=== PATIENT | female | born 1940 | race Caucasian/White ===

== ENCOUNTER → 2017-05-21 | Outpatient (CLI) | payer OTHER ==
[~2017-05-21] MED LIST: CEFADROXIL500 MG PO; METFORMIN HCL1000 MG PO; PERCOCET 5/321 UDTAB PO; XARELTO10 MG PO; ZOCOR40 MG
== END | disposition home or self-care (01) ==
LOC: LAB 08:45
DX: E11.65 Type 2 diabetes mellitus with hyperglycemia (principal); E78.2 Mixed hyperlipidemia; E03.8 Other specified hypothyroidism; E55.9 Vitamin D deficiency, unspecified

== ENCOUNTER → 2017-09-24 | Outpatient (CLI) | payer OTHER | END | disposition home or self-care (01) | LOC: LAB 08:55 | DX: E78.2 Mixed hyperlipidemia (principal); D68.8 Other specified coagulation defects; N39.0 Urinary tract infection, site not specified; E11.65 Type 2 diabetes mellitus with hyperglycemia; E03.8 Other specified hypothyroidism ==

== ENCOUNTER → 2018-03-25 09:53 | Outpatient (CLI) | payer OTHER | END | disposition home or self-care (01) | LOC: LAB 09:53 | DX: E11.65 Type 2 diabetes mellitus with hyperglycemia (principal); E03.8 Other specified hypothyroidism; E78.2 Mixed hyperlipidemia; E11.21 Type 2 diabetes mellitus with diabetic nephropathy; N39.0 Urinary tract infection, site not specified ==

== ENCOUNTER 2018-06-24 09:17 | Outpatient (CLI) | payer OTHER | END 2018-06-24 09:32 | disposition home or self-care (01) | LOC: LAB 09:17 | DX: E78.2 Mixed hyperlipidemia (principal); E11.21 Type 2 diabetes mellitus with diabetic nephropathy; E11.65 Type 2 diabetes mellitus with hyperglycemia ==

== ENCOUNTER 2018-09-30 09:00 | Outpatient (CLI) | payer OTHER | END 2018-09-30 09:15 | disposition home or self-care (01) | LOC: LAB 09:00 | DX: E11.65 Type 2 diabetes mellitus with hyperglycemia (principal); D55.9 Anemia due to enzyme disorder, unspecified; E11.21 Type 2 diabetes mellitus with diabetic nephropathy ==

== ENCOUNTER → 2018-12-30 08:51 | Outpatient (CLI) | payer OTHER | END | disposition home or self-care (01) | LOC: LAB 08:51 | DX: E11.65 Type 2 diabetes mellitus with hyperglycemia (principal); E78.2 Mixed hyperlipidemia; D64.89 Other specified anemias; N39.0 Urinary tract infection, site not specified ==

== ENCOUNTER 2019-06-12 08:48 | Outpatient (CLI) | payer OTHER | END 2019-06-12 09:12 | disposition home or self-care (01) | LOC: LAB 08:48 | DX: N39.0 Urinary tract infection, site not specified (principal); E11.21 Type 2 diabetes mellitus with diabetic nephropathy; E11.65 Type 2 diabetes mellitus with hyperglycemia; D64.89 Other specified anemias; D68.8 Other specified coagulation defects; Z12.11 Encounter for screening for malignant neoplasm of colon ==

== ENCOUNTER 2019-09-26 09:58 | Outpatient (CLI) | payer OTHER | END 2019-09-26 10:05 | disposition home or self-care (01) | LOC: LAB 09:58 | PROVIDERS: ATTEND Specialist | DX: E11.21 Type 2 diabetes mellitus with diabetic nephropathy (principal); E11.65 Type 2 diabetes mellitus with hyperglycemia ==

== ENCOUNTER 2020-02-11 09:45 | Outpatient (CLI) | payer OTHER | END 2020-02-11 09:51 | disposition home or self-care (01) | LOC: LAB 09:45 | PROVIDERS: ATTEND Specialist | DX: D51.3 Other dietary vitamin B12 deficiency anemia (principal); E78.2 Mixed hyperlipidemia; E11.65 Type 2 diabetes mellitus with hyperglycemia; K75.81 Nonalcoholic steatohepatitis (NASH) ==

== ENCOUNTER → 2020-05-07 09:01 | Outpatient (CLI) | payer OTHER | END | disposition home or self-care (01) | LOC: LAB 09:01 | PROVIDERS: ATTEND Specialist | DX: E11.21 Type 2 diabetes mellitus with diabetic nephropathy (principal); E11.65 Type 2 diabetes mellitus with hyperglycemia; E03.8 Other specified hypothyroidism; E78.2 Mixed hyperlipidemia; Z12.11 Encounter for screening for malignant neoplasm of colon ==

== ENCOUNTER 2020-08-06 08:51 | Outpatient (CLI) | payer OTHER | END 2020-08-06 08:56 | disposition home or self-care (01) | LOC: LAB 08:51 | PROVIDERS: ATTEND Specialist | DX: D68.8 Other specified coagulation defects (principal); D64.1 Secondary sideroblastic anemia due to disease; E11.65 Type 2 diabetes mellitus with hyperglycemia; N39.0 Urinary tract infection, site not specified; E11.21 Type 2 diabetes mellitus with diabetic nephropathy; E03.8 Other specified hypothyroidism ==

== ENCOUNTER → 2020-11-05 08:50 | Outpatient (CLI) | payer OTHER | END | disposition home or self-care (01) | LOC: LAB 08:50 | PROVIDERS: ATTEND Specialist | DX: E11.65 Type 2 diabetes mellitus with hyperglycemia (principal); N25.81 Secondary hyperparathyroidism of renal origin; E78.2 Mixed hyperlipidemia; E11.21 Type 2 diabetes mellitus with diabetic nephropathy ==

== ENCOUNTER 2021-02-25 08:31 | Outpatient (CLI) | payer OTHER | END 2021-02-25 08:34 | disposition home or self-care (01) | LOC: LAB 08:31 | PROVIDERS: ATTEND Specialist | DX: E03.8 Other specified hypothyroidism (principal); E11.65 Type 2 diabetes mellitus with hyperglycemia; Z12.11 Encounter for screening for malignant neoplasm of colon; D64.89 Other specified anemias ==

== ENCOUNTER 2021-05-20 08:51 | Outpatient (CLI) | payer OTHER | END 2021-05-20 08:57 | disposition home or self-care (01) | LOC: RAD 08:51 | PROVIDERS: ATTEND Specialist | DX: J45.998 Other asthma (principal) ==

== ENCOUNTER → 2021-08-26 08:37 | Outpatient (CLI) | payer OTHER | END | disposition home or self-care (01) | LOC: LAB 08:37 | PROVIDERS: ATTEND Specialist | DX: E03.9 Hypothyroidism, unspecified (principal); E11.21 Type 2 diabetes mellitus with diabetic nephropathy; N39.9 Disorder of urinary system, unspecified; E78.2 Mixed hyperlipidemia; E11.65 Type 2 diabetes mellitus with hyperglycemia; D64.9 Anemia, unspecified; N25.81 Secondary hyperparathyroidism of renal origin ==

== ENCOUNTER 2021-11-18 08:37 | Outpatient (CLI) | payer OTHER | END 2021-11-18 08:38 | disposition home or self-care (01) | LOC: LAB 08:37 | PROVIDERS: ATTEND Specialist | DX: D50.9 Iron deficiency anemia, unspecified (principal); I11.9 Hypertensive heart disease without heart failure; E03.9 Hypothyroidism, unspecified; E78.2 Mixed hyperlipidemia; E11.51 Type 2 diabetes mellitus with diabetic peripheral angiopathy without gangrene; E11.65 Type 2 diabetes mellitus with hyperglycemia; E11.21 Type 2 diabetes mellitus with diabetic nephropathy; Z12.11 Encounter for screening for malignant neoplasm of colon ==

== ENCOUNTER 2022-02-10 08:31 | Outpatient (CLI) | payer OTHER | END 2022-02-10 08:35 | disposition home or self-care (01) | LOC: LAB 08:31 | PROVIDERS: ATTEND Specialist | DX: N39.9 Disorder of urinary system, unspecified (principal); E11.69 Type 2 diabetes mellitus with other specified complication; E03.8 Other specified hypothyroidism; Z13.220 Encounter for screening for lipoid disorders; D64.89 Other specified anemias; N25.81 Secondary hyperparathyroidism of renal origin; R07.89 Other chest pain ==

== ENCOUNTER 2022-05-12 08:40 | Outpatient (CLI) | payer OTHER | END 2022-05-12 08:41 | disposition home or self-care (01) | LOC: LAB 08:40 | PROVIDERS: ATTEND Specialist | DX: E11.21 Type 2 diabetes mellitus with diabetic nephropathy (principal); E11.69 Type 2 diabetes mellitus with other specified complication; E03.8 Other specified hypothyroidism; N39.9 Disorder of urinary system, unspecified; D64.89 Other specified anemias; Z13.220 Encounter for screening for lipoid disorders ==

== ENCOUNTER 2022-08-18 09:00 | Outpatient (CLI) | payer OTHER | END 2022-08-18 09:04 | disposition home or self-care (01) | LOC: RAD 09:00 | PROVIDERS: ATTEND Specialist | DX: I70.0 Atherosclerosis of aorta (principal) ==

== ENCOUNTER 2022-08-25 08:18 | Outpatient (CLI) | payer OTHER | END 2022-08-25 08:19 | disposition home or self-care (01) | LOC: LAB 08:18 | PROVIDERS: ATTEND Specialist | DX: D64.89 Other specified anemias (principal); E55.9 Vitamin D deficiency, unspecified; E11.69 Type 2 diabetes mellitus with other specified complication; E11.21 Type 2 diabetes mellitus with diabetic nephropathy; Z13.220 Encounter for screening for lipoid disorders; E03.8 Other specified hypothyroidism; M00.80 Arthritis due to other bacteria, unspecified joint; N39.9 Disorder of urinary system, unspecified ==

== ENCOUNTER 2022-12-01 08:39 | Outpatient (CLI) | payer OTHER | END 2022-12-01 08:41 | disposition home or self-care (01) | LOC: LAB 08:39 | PROVIDERS: ATTEND Specialist | DX: E03.9 Hypothyroidism, unspecified (principal); E11.21 Type 2 diabetes mellitus with diabetic nephropathy; N39.9 Disorder of urinary system, unspecified; E78.2 Mixed hyperlipidemia; E11.65 Type 2 diabetes mellitus with hyperglycemia; K57.81 Diverticulitis of intestine, part unspecified, with perforation and abscess with bleeding ==

== ENCOUNTER 2023-02-23 08:43 | Outpatient (CLI) | payer OTHER ==
[2023-02-23 09:18] LABS: HEMATOCRIT 43.7 % (36.0-45.00); HEMOGLOBIN 14.6 g/dL (12.0-15.00); MEAN CELL VOLUME 95.5 fL (80.00-100.00); MEAN CORPUSCULAR HEMOGLOBIN 31.9 pg (27.00-32.0); MEAN CORPUSCULAR HGB CONC 33.4 g/dl (32.0-36.0); PLATELET COUNT 160 K/uL (150-450); RED BLOOD COUNT 4.57 M/uL (4.00-6.00); RED CELL DISTRIBUTION WIDTH 13.7 % (11.5-14.5)
[2023-02-23 09:56] LABS: URINE APPEARANCE Clear; URINE BILIRRUBIN Negative (NEGATIVE); URINE BLOOD Negative; URINE COLOR Yellow; URINE LEUKOCYTE Moderate; URINE NITRATE Negative; URINE PROTEIN Negative (NEGATIVE); URINE UROBILINOGEN 0.2 E.U./dl
[2023-02-23 10:26] LABS: URINE GLUCOSE >=1000 MG/DL (NEGATIVE)
[2023-02-23 10:27] LABS: URINE WBC 13-20 /hpf
[2023-02-23 10:28] LABS: URINE BACTERIA FEW; URINE CRYSTALS FEW /HPF; URINE MUCUS SCANT
[2023-02-23 10:30] LABS: URINE EPITHELIAL CELLS 0-4 /HPF; URINE RBC 0-3 /HPF
[2023-02-23 10:35] LABS: ANION GAP 12 (10.0-20.0); BLOOD UREA NITROGEN 23 mg/dL (7-18); BUN CREA RATIO 29 (7.0-25.0); CALCIUM 8.8 mg/dL (8.5-10.1); CARBON DIOXIDE 24 mEq/L (21-32); CHLORIDE 110 mmol/L (98-107); CHOL HDL RATIO 3.2 (0-5.0); CHOLESTEROL 209 mg/dL (0-200); CREATININE SERUM 0.79 mg/dL (0.55-1.02); GFR 70.02; GLUCOSE FASTING 165 mg/dL (65-100); HDL 65 mg/dl (40-60); LDL 124 mg/dl (0-130); OSMOLALITY SERUM 289 MOSM/KG (275-295); POTASSIUM 4.51 mEq/L (3.5-5.1); SODIUM 141 mmol/L (136-145); TRIGLYCERIDES 100 mg/dL (0-150); VLDL 20 (0-39)
[2023-02-23 10:42] LABS: C-REACTIVE PROTEIN < 0.29 MG/DL (0.00-0.29)
== END 2023-02-23 08:44 | disposition home or self-care (01) ==
LOC: LAB 08:43
PROVIDERS: ATTEND Specialist
DX: D64.89 Other specified anemias (principal); N39.9 Disorder of urinary system, unspecified; E11.65 Type 2 diabetes mellitus with hyperglycemia; E11.21 Type 2 diabetes mellitus with diabetic nephropathy; N25.81 Secondary hyperparathyroidism of renal origin; E03.8 Other specified hypothyroidism; E11.69 Type 2 diabetes mellitus with other specified complication; M00.80 Arthritis due to other bacteria, unspecified joint; Z13.220 Encounter for screening for lipoid disorders

== ENCOUNTER 2024-06-27 08:01 | Outpatient (CLI) | payer OTHER ==
[2024-06-27 09:09] LABS: HEMATOCRIT 44.5 % (36.0-45.00); MEAN CELL VOLUME 94.2 fL (80.00-100.00); MEAN CORPUSCULAR HEMOGLOBIN 31.8 pg (27.00-32.0); MEAN CORPUSCULAR HGB CONC 33.8 g/dl (32.0-36.0); PLATELET COUNT 168 K/uL (150-450); RED BLOOD COUNT 4.72 M/uL (4.00-6.00); RED CELL DISTRIBUTION WIDTH 13.3 % (11.5-14.5)
[2024-06-27 09:28] LABS: URINE APPEARANCE Clear; URINE BILIRRUBIN Negative (NEGATIVE); URINE BLOOD Negative; URINE COLOR Yellow; URINE KETONE Negative (NEGATIVE); URINE LEUKOCYTE Negative; URINE NITRATE Negative; URINE PROTEIN Negative (NEGATIVE); URINE UROBILINOGEN 0.2 E.U./dl
[2024-06-27 09:31] LABS: URINE EPITHELIAL CELLS 1.5 uL (0.0-38.8); URINE WBC 6.7 uL (0.0-23.2)
[2024-06-27 09:49] LABS: CREATININE URINE RANDOM 38.5 MG/DL (30-125)
[2024-06-27 09:50] LABS: URINE GLUCOSE >=1000 MG/DL (NEGATIVE); URINE RBC 0.5 uL (0.0-20.8)
[2024-06-27 10:21] LABS: BILIRUBIN TOTAL 0.37 mg/dL (0.3-1.2); CALCIUM 9.1 mg/dL (8.5-10.1); CHOL HDL RATIO 2.3 (0-5.0); CREATININE SERUM 0.72 mg/dL (0.55-1.02); FREE TRIODOTIRONINE 2.22 pg/ml (2.18-3.98); GFR 77.74; GLOBULINA 3.2 G/DL (2.4-3.5); POTASSIUM 4.42 mEq/L (3.5-5.1); TOTAL PROTEIN 7.2 gm/dL (6.4-8.2); TSH 1.74 uIU/mL (0.358-3.74)
== END 2024-06-27 08:09 | disposition home or self-care (01) ==
LOC: LAB 08:01
PROVIDERS: ATTEND Specialist
DX: E03.9 Hypothyroidism, unspecified (principal); E11.21 Type 2 diabetes mellitus with diabetic nephropathy; N39.0 Urinary tract infection, site not specified; E78.2 Mixed hyperlipidemia; E11.65 Type 2 diabetes mellitus with hyperglycemia; D64.9 Anemia, unspecified; N25.81 Secondary hyperparathyroidism of renal origin; E55.9 Vitamin D deficiency, unspecified

== ENCOUNTER → 2024-09-26 08:26 | Outpatient (CLI) | payer OTHER ==
[2024-09-26 09:21] LABS: BASO % 0.8 % (0.1-1.2); EOS % 2.7 % (0.7-7.0); HEMATOCRIT 43.1 % (34.1-44.9); HEMOGLOBIN 14.4 g/dL (11.2-15.7); LYMPH # 2.04 (1.18-3.74); LYMPH % 27.6 % (19.3-53.1); MEAN CORPUSCULAR HEMOGLOBIN 31.5 pg (25.6-32.2); MONO # 0.57 (0.24-0.82); MONO % 7.7 % (4.7-12.5); NEUT # 4.52 (1.56-6.13); NEUT % 61.1 % (34.0-71.1); PLATELET COUNT 162 K/uL (163-369); RED BLOOD COUNT 4.57 M/uL (3.93-5.22); RED CELL DISTRIBUTION WIDTH 12.8 % (11.6-14.4)
[2024-09-26 09:47] LABS: CREATININE URINE RANDOM 79.2 MG/DL (30-125)
[2024-09-26 10:10] LABS: CALCIUM 9.1 mg/dL (8.5-10.1); CHOL HDL RATIO 1.9 (0-5.0); CREATININE SERUM 0.66 mg/dL (0.55-1.02); GFR 85.95; POTASSIUM 4.33 mEq/L (3.5-5.1)
== END | disposition home or self-care (01) ==
LOC: RAD 08:26
PROVIDERS: ATTEND Specialist
DX: J45.998 Other asthma (principal); E11.21 Type 2 diabetes mellitus with diabetic nephropathy; E78.2 Mixed hyperlipidemia; E11.65 Type 2 diabetes mellitus with hyperglycemia; D64.9 Anemia, unspecified

== ENCOUNTER 2025-01-02 08:22 | Outpatient (CLI) | payer OTHER ==
[2025-01-02 09:42] LABS: BASO % 1.2 % (0.1-1.2); EOS # 0.31 (0.04-0.54); EOS % 4.7 % (0.7-7.0); LYMPH # 1.98 (1.18-3.74); LYMPH % 30.1 % (19.3-53.1); MEAN PLATELET VOLUME 11.10 fl (9.4-12.4); MONO # 0.48 (0.24-0.82); MONO % 7.3 % (4.7-12.5); NEUT # 3.70 (1.56-6.13); NEUT % 56.4 % (34.0-71.1); RED CELL DISTRIBUTION WIDTH 12.6 % (11.6-14.4)
[2025-01-02 09:53] LABS: CREATININE URINE RANDOM 64.3 MG/DL (30-125)
[2025-01-02 10:23] LABS: ALT/SGPT 27.0 U/L (12-78); AST/SGOT 16.0 U/L (15-37); BILIRUBIN TOTAL 0.41 mg/dL (0.3-1.2); BILIRUBIN,CONJUGATED 0.12 mg/dL (0.0-0.2); CHOL HDL RATIO 2.1 (0-5.0); HDL 65.0 mg/dl (40-60); LDL 51.0 mg/dl (0-130); TSH 1.32 uIU/mL (0.358-3.74); VLDL 18.0 (0-39)
== END 2025-01-02 08:27 | disposition home or self-care (01) ==
LOC: LAB 08:22
PROVIDERS: ATTEND Specialist
DX: E03.9 Hypothyroidism, unspecified (principal); E11.21 Type 2 diabetes mellitus with diabetic nephropathy; E78.2 Mixed hyperlipidemia; E11.65 Type 2 diabetes mellitus with hyperglycemia; D64.9 Anemia, unspecified; D69.6 Thrombocytopenia, unspecified; K75.81 Nonalcoholic steatohepatitis (NASH)